=== PATIENT | male | born 1995 | race Caucasian/White ===

== ENCOUNTER 2018-02-15 11:56 | Inpatient (IN) | payer OTHER ==
[2018-02-15] MEDS: KETOROLAC 30 MG INJ IV (14:38)
[2018-02-15 14:50] LABS: ADD UMIC YES; UR ASCORBIC ACID NEGATIVE (NEGATIVE); UR BILIRUBIN (Dip) NEGATIVE (NEGATIVE); UR BLOOD (Dip) 1+ mg/dL (NEGATIVE); UR CLARITY CLEAR (CLEAR); UR COLOR YELLOW (YELLOW); UR GLUCOSE (Dip) NEGATIVE (NEGATIVE); UR KETONES (Dip) NEGATIVE (NEGATIVE); UR LEUKOCYTE ESTERASE (Dip) NEGATIVE Leu/ul (NEGATIVE); UR MUCUS FEW /HPF (NONE SEEN); UR NITRITE (Dip) NEGATIVE (NEGATIVE); UR RBC 14 /HPF (0-5); UR SPECIFIC GRAVITY (Dip) 1.026 (1.003-1.030); UR TOTAL PROTEIN (Dip) NEGATIVE (NEGATIVE); UR UROBILINOGEN (Dip) 1+ mg/dL (NEGATIVE); UR WBC 0 /HPF (0-5)
[2018-02-15 14:54] LABS: ADD MAN DIFF? NO
[2018-02-15] MEDS: SOD CHLORIDE 0.9% 1,000 ML IV (15:01)
[2018-02-15 15:03] LABS: BASOPHIL # 0.1 10^3/ul (0.0-0.1); BASOPHILS % 0.5 % (0.0-2.0); EOSINOPHILS # 0.2 10^3/ul (0.0-0.5); EOSINOPHILS % 1.8 % (0.0-7.0); HEMATOCRIT 49.2 % (42.0-52.0); HEMOGLOBIN 16.3 g/dl (14.0-18.0); LYMPHOCYTES # 3.6 10^3/ul (0.8-2.9); LYMPHOCYTES % 28.4 % (15.0-51.0); MEAN CORPUSCULAR HEMOGLOBIN 29.3 pg (29.0-33.0); MEAN CORPUSCULAR HGB CONC 33.1 g/dl (32.0-37.0); MEAN CORPUSCULAR VOLUME 88.5 fl (82.0-101.0); MEAN PLATELET VOLUME 9.3 fl (7.4-10.4); MONOCYTE # 1.2 10^3/ul (0.3-0.9); MONOCYTES % 9.2 % (0.0-11.0); NEUTROPHIL # 7.4 10^3/ul (1.6-7.5); NEUTROPHILS % 59.1 % (39.0-77.0); PLATELET COUNT 355 10^3/UL (140-415); RED BLOOD COUNT 5.56 10^6/ul (4.70-6.10); RED CELL DISTRIBUTION WIDTH 12.5 % (11.5-14.5)
[2018-02-15 15:03] LABS: WHITE BLOOD COUNT 12.6 10^3/ul (4.8-10.8)
[2018-02-15 15:15] LABS: ALANINE AMINOTRANSFERASE 134 IU/L (13-69); ALBUMIN/GLOBULIN RATIO 1.13; ALKALINE PHOSPHATASE 84 IU/L (42-121); ANION GAP 13 (5-13); ASPARTATE AMINO TRANSFERASE 72 IU/L (15-46); BILIRUBIN,INDIRECT 0.8 mg/dl (0-1.1); BILIRUBIN,TOTAL 0.8 mg/dl (0.2-1.3); BLOOD UREA NITROGEN 14 mg/dl (7-20); CARBON DIOXIDE 31 mmol/L (21-31); CHLORIDE 99 mmol/L (97-110); CREATININE 0.84 mg/dl (0.61-1.24); Estimated GFR > 60 mL/min (>60); GLUCOSE 94 mg/dl (70-220); LIPASE 11 U/L (23-300); POTASSIUM 4.3 mmol/L (3.5-5.1); SODIUM 143 mmol/L (135-144); TOTAL PROTEIN 9.4 g/dl (6.1-8.1)
[2018-02-15] MEDS: ONDANSETRON 4 MG INJ IV (15:32)
[2018-02-15] MEDS: morphine 4 MG/ML VIAL IV (15:32)
[2018-02-15] MEDS: IOHEXOL 100 ML (16:25)
[2018-02-15] MEDS: SOD CHLORIDE 0.9% 100 ML (16:25)
[2018-02-15] MEDS: HEPARIN 1000 UNITS/ML 10 ML INJ IV (17:45)
[2018-02-15 17:57] LABS: INR 0.93; PROTIME 12.5 Sec (11.9-14.9)
[2018-02-15 17:58] LABS: PARTIAL THROMBOPLASTIN TIME 36.4 Sec (23.0-35.0)
[2018-02-15] MEDS: HEPARIN 25000 UNITS/250 ML 250 ML IV (18:15)
[2018-02-15] MEDS ORDERED: DOCUSATE SODIUM 100 MG CAP PO (20:30)
[2018-02-15] MEDS ORDERED: BISACODYL (EC) 5 MG TAB PO (20:30)
[2018-02-15] MEDS ORDERED: ONDANSETRON 4 MG INJ IV (20:30)
[2018-02-15] MEDS ORDERED: HEPARIN 25000 UNITS/250 ML 250 ML IV (20:30)
[2018-02-15] MEDS ORDERED: NACL 0.9% 3 ML SYG IV (20:30)
[2018-02-15] MEDS ORDERED: HEPARIN 1000 UNITS/ML 10 ML INJ IV ×3 (20:30)
[2018-02-15] MEDS ORDERED: ACETAMINOPHEN 325 MG TAB PO (20:30)
[2018-02-15] MEDS: morphine 2 MG INJ IV (21:43)
[2018-02-16] MEDS ORDERED: ENOXAPARIN 100 MG/ML SYG SC (02:00)
[2018-02-16] MEDS: ENOXAPARIN 60 MG/0.6 ML SYG SC ×2 (02:41→11:42)
[2018-02-16] MEDS ORDERED: LORAZEPAM 2 MG INJ IV (05:00)
[2018-02-16 05:49] LABS: ADD MAN DIFF? NO
[2018-02-16 05:56] LABS: BASOPHIL # 0.1 10^3/ul (0.0-0.1); BASOPHILS % 0.5 % (0.0-2.0); EOSINOPHILS # 0.3 10^3/ul (0.0-0.5); EOSINOPHILS % 2.8 % (0.0-7.0); HEMATOCRIT 44.9 % (42.0-52.0); HEMOGLOBIN 14.6 g/dl (14.0-18.0); LYMPHOCYTES # 3.3 10^3/ul (0.8-2.9); LYMPHOCYTES % 35.1 % (15.0-51.0); MEAN CORPUSCULAR HEMOGLOBIN 28.7 pg (29.0-33.0); MEAN CORPUSCULAR HGB CONC 32.5 g/dl (32.0-37.0); MEAN CORPUSCULAR VOLUME 88.2 fl (82.0-101.0); MEAN PLATELET VOLUME 9.2 fl (7.4-10.4); MONOCYTES % 10.8 % (0.0-11.0); NEUTROPHIL # 4.7 10^3/ul (1.6-7.5); NEUTROPHILS % 49.8 % (39.0-77.0); PLATELET COUNT 307 10^3/UL (140-415); RED BLOOD COUNT 5.09 10^6/ul (4.70-6.10); RED CELL DISTRIBUTION WIDTH 12.5 % (11.5-14.5)
[2018-02-16 05:56] LABS: WHITE BLOOD COUNT 9.4 10^3/ul (4.8-10.8)
[2018-02-16 06:03] LABS: HEMOGLOBIN A1C 5.1 % (0-5.9)
[2018-02-16] MEDS: HYDROCODONE/APAP (5/325) TAB PO ×3 (06:04→20:37)
[2018-02-16 06:11] LABS: INR 0.99; PROTIME 13.2 Sec (11.9-14.9)
[2018-02-16 06:15] LABS: ALANINE AMINOTRANSFERASE 110 IU/L (13-69); ALBUMIN/GLOBULIN RATIO 1.37; ALKALINE PHOSPHATASE 70 IU/L (42-121); ANION GAP 9 (5-13); ASPARTATE AMINO TRANSFERASE 58 IU/L (15-46); BILIRUBIN,INDIRECT 0.7 mg/dl (0-1.1); BILIRUBIN,TOTAL 0.7 mg/dl (0.2-1.3); BLOOD UREA NITROGEN 17 mg/dl (7-20); CARBON DIOXIDE 28 mmol/L (21-31); CHLORIDE 104 mmol/L (97-110); CHOL/HDL RATIO 4.5 RATIO; CHOLESTEROL 119 mg/dl (100-200); CREATININE 0.82 mg/dl (0.61-1.24); Estimated GFR > 60 mL/min (>60); GLUCOSE 94 mg/dl (70-220); HDL CHOLESTEROL 26 mg/dl (30-63); LDL CHOLESTEROL,CALCULATED 85 mg/dl; MAGNESIUM 2.1 mg/dl (1.7-2.5); POTASSIUM 4.3 mmol/L (3.5-5.1); SODIUM 141 mmol/L (135-144); TOTAL PROTEIN 6.9 g/dl (6.1-8.1); TRIGLYCERIDES 40 mg/dl (0-149)
[2018-02-16 06:39] LABS: HEPATITIS B SURFACE ANTIGEN NEGATIVE (NEGATIVE)
[2018-02-16 06:56] LABS: HEPATITIS B SURFACE ANTIBODY NEGATIVE (NEGATIVE)
[2018-02-16 06:57] LABS: HEPATITIS C VIRAL ANTIBODY REACTIVE (NEGATIVE)
[2018-02-16 08:28] LABS: ETHANOL < 10.0 mg/dl (0-0)
[2018-02-16] MEDS: traMADol 50 MG TAB PO (11:36)
[2018-02-16] MEDS: LIDOCAINE 5% PATCH TD (14:31)
[2018-02-16] MEDS ORDERED: (Nursing Note) XX (18:00)
[2018-02-16] MEDS: APIXABAN 5 MG TABLET PO (20:37)
[2018-02-17] MEDS: HYDROCODONE/APAP (5/325) TAB PO (06:10)
[2018-02-17 06:28] LABS: ADD MAN DIFF? NO; BASOPHIL # 0.1 10^3/ul (0.0-0.1); BASOPHILS % 0.6 % (0.0-2.0); EOSINOPHILS # 0.3 10^3/ul (0.0-0.5); EOSINOPHILS % 3.2 % (0.0-7.0); HEMATOCRIT 42.9 % (42.0-52.0); HEMOGLOBIN 14.4 g/dl (14.0-18.0); LYMPHOCYTES # 2.9 10^3/ul (0.8-2.9); LYMPHOCYTES % 33.8 % (15.0-51.0); MEAN CORPUSCULAR HEMOGLOBIN 29.2 pg (29.0-33.0); MEAN CORPUSCULAR HGB CONC 33.6 g/dl (32.0-37.0); MEAN PLATELET VOLUME 9.3 fl (7.4-10.4); MONOCYTE # 0.7 10^3/ul (0.3-0.9); MONOCYTES % 8.7 % (0.0-11.0); NEUTROPHIL # 4.5 10^3/ul (1.6-7.5); NEUTROPHILS % 52.8 % (39.0-77.0); PLATELET COUNT 329 10^3/UL (140-415); RED BLOOD COUNT 4.93 10^6/ul (4.70-6.10); RED CELL DISTRIBUTION WIDTH 12.4 % (11.5-14.5)
[2018-02-17 06:28] LABS: WHITE BLOOD COUNT 8.5 10^3/ul (4.8-10.8)
[2018-02-17 06:57] LABS: ALANINE AMINOTRANSFERASE 110 IU/L (13-69); ALBUMIN 3.9 g/dl (3.3-4.9); ALBUMIN/GLOBULIN RATIO 1.18; ALKALINE PHOSPHATASE 72 IU/L (42-121); ANION GAP 12 (5-13); ASPARTATE AMINO TRANSFERASE 79 IU/L (15-46); BILIRUBIN,INDIRECT 0.8 mg/dl (0-1.1); BILIRUBIN,TOTAL 0.8 mg/dl (0.2-1.3); BLOOD UREA NITROGEN 13 mg/dl (7-20); CALCIUM 9.1 mg/dl (8.4-10.2); CARBON DIOXIDE 26 mmol/L (21-31); CHLORIDE 104 mmol/L (97-110); CREATININE 0.67 mg/dl (0.61-1.24); Estimated GFR > 60 mL/min (>60); GLUCOSE 93 mg/dl (70-220); MAGNESIUM 2.1 mg/dl (1.7-2.5); POTASSIUM 4.2 mmol/L (3.5-5.1); SODIUM 142 mmol/L (135-144); TOTAL PROTEIN 7.2 g/dl (6.1-8.1)
[2018-02-17] MEDS: APIXABAN 5 MG TABLET PO (09:30)
[2018-02-17] MEDS: LIDOCAINE 5% PATCH TD (09:31)
[2018-02-17] MEDS: POLYETHYLENE GLYCOL 17 GM PACKET PO (09:31)
== END 2018-02-17 15:14 | disposition home or self-care (01) | DRG 176 ==
LOC: FTE 11:56 → 6WM 17:23
DX: I26.99 Other pulmonary embolism without acute cor pulmonale (principal); R04.2 Hemoptysis; Z90.49 Acquired absence of other specified parts of digestive tract; F17.200 Nicotine dependence, unspecified, uncomplicated; E66.9 Obesity, unspecified; Z68.33 Body mass index [BMI] 33.0-33.9, adult; R00.1 Bradycardia, unspecified; B19.20 Unspecified viral hepatitis C without hepatic coma; F11.90 Opioid use, unspecified, uncomplicated
CPT/HCPCS: 36415; 71045; 71275; 74176; 76705; 80053; 80061; 80307; 81001; 83036; 83690; 83735; 85025; 85610; 85730; 86706; 86709; 86803; 87040; 87340; 87522; 93005; 93306; 93970; 96374; 96375; 99285-25